=== PATIENT | female | born 1960 | race Caucasian/White ===

== ENCOUNTER → 2017-08-01 | Outpatient (CLI) | payer BC ==
[~2017-08-01] VITALS: Ht 165.1 cm; Wt 70.3 kg
[~2017-08-01] MED LIST: ALEVE220 MG PO; CYMBALTA30 MG PO; EXCEDRIN CAPLE1 EACH PO; FLONASE 0.05%50 MCG NASAL; HYDROXYZINE HCL25 M1 PO; LEXAPRO 10 MG T10 M1 PO; OMEPRAZOLE40 MG PO; TICALAST NASAL1 EACH NASAL; TOPAMAX 25 MG T25 M1 PO
--- NOTE | ~2017-08-01 | HPC ---
[facility] [address] [place] [address] PAIN MANAGEMENT CONSULTATION Name: ANGELITA OLIVEIRAJERRY Markham Room #: REG HORACERosenda Frost#: [id number] Admission: 08/01/17 Attend Phys: Aftab Lopez DO Discharge: Date of : 64 Report #: [id number] THIS REPORT FOR: //name// CC: CANDACE Lopez DATE OF SERVICE: 08/01/2017 The patient is a 56-year-old female, somewhat self-referred to the pain clinic for neck and shoulder pain, history of lumbar radiculopathy. The patient notes she has had chronic axial back and sciatic pain, but the past year, she has had more problems with her neck, right shoulder and arm. She had had radiofrequency neurolysis of the lumbar facets 2 years ago with about 1 year of relief. Had cervical facet joint injections done earlier this year with really only nominal efficacy. Uses some naproxen sodium 500 mg b.i.d. and heat with minimal efficacy. The patient works as a hairdresser, spends a good deal of time with her arms in the air with significant exacerbation of pain in the neck, right shoulder and arm throughout the day. Rates pain anywhere from 6-8 on VAS. Describes continuous, shooting, aching, throbbing, sharp, stabbing, tender pain. REVIEW OF SYSTEMS: Complete review of systems attached to chart and gone over with the patient. She is . Does not smoke, drinks alcohol socially. History of chronic migraine headaches, treated by Dr. Lynn with botox and Topamax. She had her third series of Botox injections last month. Otherwise, has enjoyed reasonably good health. She takes low dose Lexapro 10 mg for some chronic anxiety, Prilosec for gastroesophageal reflux. 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 Works as a hairdresser. Has continued to work despite pain. PHYSICAL EXAMINATION: Reveals a 5-foot 5-inch, 155-pound female in moderate distress. BMI is 25.8 kilograms per meter squared. Blood pressure is 129/84, pulse 82, respirations 16. Alert and oriented to person, place and time, judged to be a reasonable historian. Has some nominal nystagmus or lateral gaze deviation. Wears corrective lenses. Cervical range of motion is full, but she has spasm in the right trapezius more than the left and right splenius capitis more than the left. Modestly positive Lhermitte's sign. Upper extremity strength shows slight diminution in right deltoid strength. Hand grasp is symmetric. Tinel's is negative. Deep tendon reflexes shows modest diminution of right biceps compared to the left. Heart is regular and rhythmical without murmur. Lungs are clear to auscultation. Arises from chair using armrest. Gait is tandem. [address] [address] PAIN MANAGEMENT CONSULTATION Name: ANGELITA OLIVEIRAJERRY Markham Room #: REG [facility] Margot#: [id number] Admission: 08/01/17 Attend Phys: Aftab Lopez DO Discharge: Date of : 64 Report #: [id number] DIAGNOSTIC STUDIES: Include cervical MRI from 04/27/2016 noting minimal spondylosis at C4-C5, C5-C6, does have some right neural foraminal stenosis compatible with C6 radiculopathy and some spondylosis at C6-C7. Lumbar diagnostic study includes MRI from 12/2014 noting mild spondylolisthesis at L4-L5 without stenosis, L5-S1 showed some moderate disk space narrowing, broad-based disk bulge without central stenosis but with facet degenerative changes and mild bilateral neural foraminal narrowing. ASSESSMENT: Symptomatic cervical radiculopathy by clinical exam, component of cervical spondylosis, myofascial pain, axial back pain and lumbar radiculopathy by history. RECOMMENDATIONS: 1. We will recommend rotating from Lexapro 10 mg to Cymbalta 30 mg at bedtime. Hopefully, the combination of SSRI and norepinephrine reuptake inhibition will help some with myofascial component of pain. 2. Cervical epidural injection under fluoroscopy today. 3. Follow up in 4 weeks to evaluate efficacy of medication changes. May consider trigger point injections if indicated clinically at that time versus cervical facet joint injection under fluoroscopy. PROCEDURE: Cervical epidural injection under fluoroscopy. PROCEDURE NOTE: After written and informed consent was obtained including risk of dural puncture, spinal cord trauma, paralysis and increased pain, the patient was taken to the fluoroscopy suite and placed in the prone position, with appropriate abdominal bolstering, neck was flexed, palms under the thighs. Skin was prepped with ChloraPrep. Sterile draping was applied. Skin wheal with 1% Xylocaine was raised. A 22-gauge 3-1/2 inch epidural Tuohy needle was placed via a midline approach at the C7-T1 interspace, advanced under biplanar fluoroscopy using continuous loss of resistance. With appropriate loss of resistance at the expected depth on lateral view, the glass loss of resistance syringe was disconnected. A low volume extension tubing was connected to the needle and a 5 mL syringe. Negative aspiration for cerebrospinal fluid or blood was noted. A 1 mL of Omnipaque was injected which showed spread within the epidural space on biplanar fluoroscopy. This was followed with 80 mg of triamcinolone plus 1 mL of 1.5% preservative Xylocaine. Needle was withdrawn to the interspinous ligament, 0.5 mL of Xylocaine was used to flush the needle. The needle was then completely withdrawn. The area was cleansed. Band-Aid was applied. The patient was allowed to move off the procedure table and ambulated [facility] [address] [place] [address] PAIN MANAGEMENT CONSULTATION Name: ABRAM OLIVEIRA Room #: REG HORACE Frost#: [id number] Admission: 08/01/17 Attend Phys: Aftab Lopez DO Discharge: Date of : 64 Report #: [id number] to the recovery room, monitored for an appropriate period of time, discharged in good and stable condition. <ELECTRONICALLY SIGNED> By: Aftab Lopez DO 08/03/17 [id number] Aftab Lopez DO /nt
[2017-08-01 11:04] VITALS: BP 129/84
== END | disposition home or self-care (01) ==
LOC: PAIN 07:28
DX: M47.22 Other spondylosis with radiculopathy, cervical region (principal); M79.1 Myalgia; M54.16 Radiculopathy, lumbar region; G43.909 Migraine, unspecified, not intractable, without status migrainosus; Z79.899 Other long term (current) drug therapy; Z98.890 Other specified postprocedural states

== ENCOUNTER → 2020-07-25 | Outpatient (CLI) | payer BC | LOC: LAB 08:23 | PROVIDERS: ATTEND Anesthesiology | DX: Z01.812 Encounter for preprocedural laboratory examination (principal); Z20.828 Contact with and (suspected) exposure to other viral communicable diseases ==